=== PATIENT | female | born 1955 | race Caucasian/White ===

== ENCOUNTER 2018-07-06 09:23 | Outpatient (REF) | payer BC, SELFPAY ==
[2018-07-06 17:09] LABS: ALT 40 U/L (12-78); AST 25 U/L (15-37); Cholesterol 190 mg/dL (50-200); Glucose 104 mg/dL (70-100); HDL Cholesterol 60 mg/dL (40-60); LDL CHOLESTEROL 109 mg/dL (<100); TSH 4.82 uIU/mL (0.358-3.74); Triglyceride 80 mg/dL (30-150)
== END 2018-07-06 09:43 ==
LOC: NCHCN 09:23
PROVIDERS: PCP Internal Medicine; Visit Provider Nurse Practitioner Family
DX: E03.9 Hypothyroidism, unspecified (principal); E78.5 Hyperlipidemia, unspecified
CPT/HCPCS: 80061; 82947; 83721; 84443; 84450; 84460

== ENCOUNTER 2019-08-05 22:07 | Outpatient (REF) | payer BC, SELFPAY ==
[2019-08-05 20:04] LABS: ALT 44 U/L (14-59); AST 24 U/L (15-37); Calculated LDL 125 mg/dL; Cholesterol 188 mg/dL (<200); Glucose 90 mg/dL (74-106); HDL Cholesterol 51 mg/dL (40-60); TSH 2.86 uIU/mL (0.36-3.74); Triglyceride 61 mg/dL (<150)
== END 2019-08-05 22:27 ==
LOC: NCHCN 22:07
PROVIDERS: PCP Internal Medicine; Visit Provider Nurse Practitioner Family
DX: E03.9 Hypothyroidism, unspecified (principal); E78.5 Hyperlipidemia, unspecified; R73.9 Hyperglycemia, unspecified
CPT/HCPCS: 80061; 82947; 84443; 84450; 84460

== ENCOUNTER 2020-10-02 14:41 | Outpatient (REF) | payer BC, SELFPAY ==
[2020-10-02 15:49] LABS: ALT 36 U/L (14-59); AST 24 U/L (15-37); Calculated LDL 134 mg/dL (<100); Cholesterol 206 mg/dL (<200); HDL Cholesterol 59 mg/dL (40-60); TSH 2.12 uIU/mL (0.36-3.74); Triglyceride 66 mg/dL (<150)
== END 2020-10-02 14:42 | disposition home or self-care (01) ==
LOC: NCHCN 14:41
PROVIDERS: PCP Internal Medicine; Visit Provider Family Medicine
DX: Z00.00 Encounter for general adult medical examination without abnormal findings (principal); N95.2 Postmenopausal atrophic vaginitis; E66.9 Obesity, unspecified
CPT/HCPCS: 80061; 84443; 84450; 84460

== ENCOUNTER 2022-11-25 21:12 | Outpatient (REF) | payer MEDICARE, SELFPAY ==
[2022-11-25 20:16] LABS: ALT 45 U/L (14-59); AST 29 U/L (15-37); Albumin 3.9 g/dL (3.4-5.0); Alkaline Phosphatase 134 U/L (46-116); Anion Gap 2.6 mmol/L (3-11); BUN 13 mg/dL (7-18); Bilirubin, Total 0.7 mg/dL (0.2-1.0); CO2 29.4 mmol/L (21.0-32.0); CREATININE 0.7 mg/dL (0.55-1.02); Calcium 9.5 mg/dL (8.5-10.1); Calculated LDL 121 mg/dL (<100); Chloride 106 mmol/L (98-107); Cholesterol 198 mg/dL (<200); Estimated GFR 94.15 (mL/min/1.73m2); Glucose 98 mg/dL (74-106); HDL Cholesterol 64 mg/dL (40-60); Sodium 138 mmol/L (136-145); TSH 1.86 uIU/mL (0.36-3.74); Total Protein 7.8 g/dL (6.4-8.2); Triglyceride 66 mg/dL (<150)
== END 2022-11-25 21:13 | disposition home or self-care (01) ==
LOC: NCHCN 21:12
PROVIDERS: PCP Internal Medicine; Visit Provider Nurse Practitioner Family
DX: E78.5 Hyperlipidemia, unspecified (principal); E03.9 Hypothyroidism, unspecified
CPT/HCPCS: 80053; 80061; 84443

== ENCOUNTER 2023-12-01 11:41 | Outpatient (REF) | payer MEDICARE, SELFPAY ==
[2023-12-01 19:38] LABS: ALT 35 U/L (14-59); AST 27 U/L (15-37); Albumin 3.6 g/dL (3.4-5.0); Alkaline Phosphatase 112 U/L (46-116); BUN 10 mg/dL (7-18); Bilirubin, Total 0.6 mg/dL (0.2-1.0); CREATININE 0.7 mg/dL (0.55-1.02); Calcium 9.2 mg/dL (8.5-10.1); Chloride 107 mmol/L (98-107); Estimated GFR 93.56 (mL/min/1.73m2); Glucose 102 mg/dL (74-106); Potassium 4.2 mmol/L (3.5-5.1); Sodium 142 mmol/L (136-145); TSH 1.91 uIU/Ml (0.36-3.74); Total Protein 7.1 g/dL (6.4-8.2)
[2023-12-01 19:52] LABS: Calculated LDL 95 mg/dL (<100); Cholesterol 165 mg/dL (<200); HDL Cholesterol 60 mg/dL (40-60); Triglyceride 53 mg/dL (<150)
== END 2023-12-01 11:42 | disposition home or self-care (01) ==
LOC: NCHCN 11:41
PROVIDERS: PCP Internal Medicine; Visit Provider Nurse Practitioner Family
DX: E78.5 Hyperlipidemia, unspecified (principal); E03.9 Hypothyroidism, unspecified
CPT/HCPCS: 80053; 80061; 84443

== ENCOUNTER 2024-12-01 09:05 | Outpatient (REF) | payer MEDICARE, SELFPAY ==
[2024-12-01 20:58] LABS: ALT 54 U/L (14-59); AST 40 U/L (15-37); Albumin 3.8 g/dL (3.4-5.0); Alkaline Phosphatase 128 U/L (46-116); Anion Gap 4.6 mmol/L (3-11); BUN 14 mg/dL (7-18); Bilirubin, Total 0.4 mg/dL (0.2-1.0); CO2 29.4 mmol/L (21.0-32.0); CREATININE 0.7 mg/dL (0.55-1.02); Calcium 9.6 mg/dL (8.5-10.1); Chloride 105 mmol/L (98-107); Estimated GFR 92.98 (mL/min/1.73m2); Glucose 107 mg/dL (74-106); Potassium 4.7 mmol/L (3.5-5.1); Sodium 139 mmol/L (136-145); TSH 1.22 uIU/mL (0.36-3.74); Total Protein 7.8 g/dL (6.4-8.2)
== END 2024-12-01 09:06 | disposition home or self-care (01) ==
LOC: NCHCN 09:05
PROVIDERS: PCP Internal Medicine; Visit Provider Nurse Practitioner Family
DX: E03.9 Hypothyroidism, unspecified (principal); E66.9 Obesity, unspecified; Z68.37 Body mass index [BMI] 37.0-37.9, adult
CPT/HCPCS: 80053; 84443